=== PATIENT | female | born 1955 | race Caucasian/White ===

== ENCOUNTER → 2018-01-25 | Outpatient (CLI) | payer BC ==
[~2018-01-25] MED LIST: DIAZ2 PO; PROG100 PO; TRIHYD253A PO; [UNRECOGNIZED DRUG - OTHER]
[2018-01-27 11:58] LABS: HPV Genotype 16 Not Detected (NOTDET); HPV Genotype 18 Not Detected (NOTDET)
[2018-02-03 12:28] LABS: HPV High Risk Other Not Detected (NOTDET)
== END | disposition home or self-care (01) ==
LOC: OLS 14:57
PROVIDERS: Obstetrics & Gynecology Gynecology
DX: Z12.4 Encounter for screening for malignant neoplasm of cervix (principal)
CPT/HCPCS: 87624; G0123

== ENCOUNTER → 2018-02-17 | Outpatient (CLI) | payer BC | END | disposition home or self-care (01) | LOC: PLD 07:59 → LAB SHORT 07:59 | DX: N95.0 Postmenopausal bleeding (principal) | CPT/HCPCS: 88305 ==

== ENCOUNTER → 2019-02-21 | Outpatient (CLI) | payer BC ==
[2019-02-23 15:06] LABS: HPV 16 Negative (Negative); HPV 18 Negative (Negative); HPV OTHER HR TYPES Negative (Negative)
== END | disposition home or self-care (01) ==
LOC: LAB SHORT 17:41 → LAB 17:41
PROVIDERS: Obstetrics & Gynecology Gynecology
DX: Z12.4 Encounter for screening for malignant neoplasm of cervix (principal)
CPT/HCPCS: 87624; G0123

== ENCOUNTER → 2020-02-20 | Outpatient (CLI) | payer BC | END | disposition home or self-care (01) | LOC: PLD 13:31 → LAB SHORT 13:31 → LAB 13:31 | DX: N95.0 Postmenopausal bleeding (principal) | CPT/HCPCS: 88305 ==

== ENCOUNTER 2020-04-04 09:08 | Day surgery (SDC) | payer BC ==
[~2020-04-04] VITALS: Ht 165.1 cm; Wt 76.1 kg
[2020-04-04] MEDS ORDERED: ASPIR 8181 M1 PO (09:21)
[2020-04-04] MEDS ORDERED: POTA10T PO (09:21)
[2020-04-04] MEDS ORDERED: ALLERCLEAR D-21 EACH PO (09:24)
--- NOTE | 2020-04-04 09:46 | NUR ---
Ambulatory in Day Surgery. Pre-Op teaching done. Pt verbalizes understanding. Patient confirms NPO status and agrees with scheduled surgery. History, Chart, Medications and Allergies reviewed before start of procedure.
--- NOTE | 2020-04-04 11:19 | NUR ---
PT HEARING AIDS REMOVED AND PLACED IN PACU.
--- NOTE | 2020-04-04 18:04 | NUR ---
DISCHARGE SUMMARY PT A/O X4, VSS, DRESSINGS CDI. PT LEFT FLOOR TO GO HOME W/ W/ DISCHARGE PACKET, PERSONAL POSSESSIONS, HOME CARE INSTRUCTIONS, NARCOTIC PRESCRIPTION. PT EDUCATION PROVIDED ON HOME CARE, SURGICAL SITE CARE, FOLLOW UP W/ SURGEON IN 2 WEEKS, NO LIFTING > 10LBS X 2WEEKS, SHOWER OKAY, NO TUB BATHS/JACUZZI. NO TAMPONS, NO INTERCOURSE, NO DOUCHING X 2 WEEKS. PT STATES UNDERSTANDING OF ALL DISCHARGE INSTRUCTIONS. IV DC'D.
--- NOTE | 2020-04-05 09:49 | NUR ---
04/05/20 0949 Ashley Nettles VERIFICATIONS: EDIT CHART.
== END 2020-04-04 17:52 | disposition home or self-care (01) ==
LOC: ORSCMMR 09:08 → ORD 10:30 → ORSCMMR 10:30 → SURS 13:57 → ORSCMMR 17:52 → SURS 17:52
PROVIDERS: Obstetrics & Gynecology
PROC: 0UT7FZZ Resection of Bilateral Fallopian Tubes, Via Natural or Artificial Opening With Percutaneous Endoscopic Assistance (ICD-10-PCS; principal; 2020-04-04 10:30)
PROC: 0UT9FZZ Resection of Uterus, Via Natural or Artificial Opening With Percutaneous Endoscopic Assistance (ICD-10-PCS; principal; 2020-04-04 10:30)
PROC: 0UT2FZZ Resection of Bilateral Ovaries, Via Natural or Artificial Opening With Percutaneous Endoscopic Assistance (ICD-10-PCS; principal; 2020-04-04 10:30)
PROC: 8E0W8CZ Robotic Assisted Procedure of Trunk Region, Via Natural or Artificial Opening Endoscopic (ICD-10-PCS; principal; 2020-04-04 10:30)
DX: N95.0 Postmenopausal bleeding (principal); D25.9 Leiomyoma of uterus, unspecified
CPT/HCPCS: 58552; S2900; 86850; 86900; 86901; 88307; J0690; J1100; J1885; J2250; J2370; J2405; J2704; J2710; J3010; J7120

== ENCOUNTER → 2021-12-29 | Outpatient (CLI) | payer BC ==
[~2021-12-29] MED LIST changes: +ALLERCLEAR D-21 EACH PO; +ASPIR 8181 M1 PO; +POTA10T PO
== END ==
LOC: LAB SHORT 12:53
PROVIDERS: Family Medicine
DX: Z01.419 Encounter for gynecological examination (general) (routine) without abnormal findings (principal)
CPT/HCPCS: G0145

== ENCOUNTER → 2024-11-10 | Outpatient (CLI) | payer OTHER ==
[~2024-11-10] MED LIST changes: -ALLERCLEAR D-21 EACH PO; +Percocet 5-3251 EACH PO; +RAMI5 PO; +THYR60 PO; +VERA80; +[UNRECOGNIZED DRUG - OTHER] PO
[2024-11-11 07:16] LABS: Bacterial Vaginosis PCR Negative (NEGATIVE); Candida glabrata-krusei, PCR NOT DETECTED (NOT DETECT)
[2024-11-11 07:28] LABS: Candida Group, PCR DETECTED (NOT DETECT)
== END ==
LOC: LAB SHORT 17:10 → LAB 17:10
PROVIDERS: Family Medicine
DX: N89.8 Other specified noninflammatory disorders of vagina (principal)
CPT/HCPCS: 87481; 87661; 87801

== ENCOUNTER 2024-11-13 08:04 | Day surgery (SDC) | payer OTHER ==
[~2024-11-13] VITALS: Ht 165.1 cm; Wt 77.8 kg
[~2024-11-13 08:04] MED LIST changes: +Lactated Ringer's 1,000 ML IV ONE; +propofoL 50 ML IV ONE
[2024-11-13] MEDS ORDERED: Lactated Ringer's 1,000 ML IV ONE (09:13)
[2024-11-13 10:59] VITALS: BP 145/87
== END 2024-11-13 10:59 | disposition home or self-care (01) ==
LOC: ORSCSDS 08:04
PROVIDERS: Internal Medicine Gastroenterology
PROC: 0DBK8ZX Excision of Ascending Colon, Via Natural or Artificial Opening Endoscopic, Diagnostic (ICD-10-PCS; principal; 2024-11-13 09:30)
PROC: 0DBH8ZX Excision of Cecum, Via Natural or Artificial Opening Endoscopic, Diagnostic (ICD-10-PCS; principal; 2024-11-13 09:30)
PROC: 0DBM8ZX Excision of Descending Colon, Via Natural or Artificial Opening Endoscopic, Diagnostic (ICD-10-PCS; principal; 2024-11-13 09:30)
DX: Z12.11 Encounter for screening for malignant neoplasm of colon (principal); R19.5 Other fecal abnormalities; K52.9 Noninfective gastroenteritis and colitis, unspecified; K57.30 Diverticulosis of large intestine without perforation or abscess without bleeding; Z79.899 Other long term (current) drug therapy; I10 Essential (primary) hypertension; E03.9 Hypothyroidism, unspecified; G47.33 Obstructive sleep apnea (adult) (pediatric); H81.09 Meniere's disease, unspecified ear
CPT/HCPCS: 88305; J2704; J7120